=== PATIENT | female | born 1960 | race Caucasian/White ===

== ENCOUNTER 2021-03-10 08:13 | Day surgery (SDC) | payer OTHER ==
[~2021-03-10] VITALS: Ht 152.4 cm; Wt 118.2 kg
[~2021-03-10 08:13] MED LIST: ASPIRIN 81 MG CHEWABLE TABLET PO ONE; DIAZEPAM 5 MG TABLET PO ONE; DiphenhydrAMINE HCL 50 MG CAPSULE PO ONE; SODIUM CHLORIDE 0.9% 1,000 ML IV ONE
[2021-03-10] MEDS ORDERED: SODIUM CHLORIDE 0.9% 1,000 ML ONE (08:22)
[2021-03-10] MEDS ORDERED: DiphenhydrAMINE HCL 50 MG CAPSULE PO ONE (08:30)
[2021-03-10] MEDS ORDERED: DIAZEPAM 5 MG TABLET PO ONE (08:30)
[2021-03-10] MEDS ORDERED: ASPIRIN 81 MG CHEWABLE TABLET PO ONE (08:30)
[2021-03-10] MEDS ORDERED: DiphenhydrAMINE HCL 50 MG CAPSULE ONE (09:21)
[2021-03-10] MEDS ORDERED: DIAZEPAM 5 MG TABLET ONE (09:21)
[2021-03-10] MEDS ORDERED: ASPIRIN 81 MG CHEWABLE TABLET ONE (09:21)
[2021-03-10] MEDS ORDERED: CLOP75TA32 PO (10:22)
[2021-03-10] MEDS ORDERED: LEVO100T13 PO (10:22)
[2021-03-10] MEDS ORDERED: METO-408 PO (10:22)
[2021-03-10] MEDS ORDERED: NITR0.4T50 SL (10:22)
[2021-03-10] MEDS ORDERED: OXYB15TA19 PO (10:22)
[2021-03-10] MEDS ORDERED: TRAZ-252 PO (10:22)
[2021-03-10] MEDS ORDERED: ATOR-2 PO (10:22)
[2021-03-10] MEDS ORDERED: ASPI-1444 PO (10:22)
[2021-03-10] MEDS ORDERED: SODIUM BICARBONATE 50 MEQ/50 ML VIAL ONE (10:25)
[2021-03-10] MEDS ORDERED: IOHEXOL 300 MG/ML 150 ML VIAL ONE (10:25)
[2021-03-10] MEDS ORDERED: LIDOCAINE/PF 1% 30 ML VIAL ONE (10:25)
[2021-03-10] MEDS ORDERED: IOHEXOL 300 MG/ML 50 ML VIAL ONE (10:25)
[2021-03-10] MEDS ORDERED: IOHEXOL 300 MG/ML 100 ML VIAL ONE (10:25)
[2021-03-10] MEDS ORDERED: HEPARIN SODIUM 1000 UNITS/NS 1,000 ML ONE (10:25)
[2021-03-10 11:00] VITALS: BP 150/81
[2021-03-10] MEDS ORDERED: MIDAZOLAM HCL 2 MG/2 ML VIAL ONE (11:12)
[2021-03-10] MEDS ORDERED: FentaNYL CITRATE PF 100 MCG/2 ML VIAL ONE (11:12)
[2021-03-10] MEDS ORDERED: MIDAZOLAM HCL 2 MG/2 ML VIAL IVP ONE ×2 (11:30)
[2021-03-10] MEDS ORDERED: LIDOCAINE 1% 30 ML/SOD BICARB 8.4% 4 ML SQ ONE (11:30)
[2021-03-10] MEDS ORDERED: FentaNYL CITRATE PF 100 MCG/2 ML VIAL IVP ONE ×3 (11:30→11:45)
[2021-03-10] MEDS ORDERED: HEPARIN SODIUM 1000 UNITS/NS 1,000 ML IARTER ONE (11:30)
[2021-03-10] MEDS ORDERED: IOHEXOL 300 MG/ML 150 ML VIAL IARTER ONE (11:30)
[2021-03-10] MEDS ORDERED: SODIUM CHLORIDE 0.9% 250 ML IV ONE (11:45)
[2021-03-10] MEDS ORDERED: HEPARIN SODIUM,PORCINE 5,000 UNITS/ML VIAL IVP ONE (11:45)
[2021-03-10] MEDS ORDERED: CLOPIDOGREL BISULFATE 300 MG TABLET ONE (12:01)
[2021-03-10] MEDS ORDERED: TICAGRELOR 90 MG TABLET ONE (12:03)
[2021-03-10 12:04] VITALS: BP 103/56
[2021-03-10] MEDS ORDERED: TICAGRELOR 90 MG TABLET PO ONE (12:15)
== END 2021-03-10 17:10 | disposition home or self-care (01) ==
LOC: CATHLAB 08:13
PROVIDERS: ATTEND Internal Medicine Interventional Cardiology
DX: I25.119 Atherosclerotic heart disease of native coronary artery with unspecified angina pectoris (principal); F41.9 Anxiety disorder, unspecified; I10 Essential (primary) hypertension; E66.01 Morbid (severe) obesity due to excess calories; E78.5 Hyperlipidemia, unspecified; E66.9 Obesity, unspecified; I25.2 Old myocardial infarction; Z90.49 Acquired absence of other specified parts of digestive tract; Z79.899 Other long term (current) drug therapy; Z98.890 Other specified postprocedural states
CPT/HCPCS: 93005; 93458; 99152; 99153; C1760; C1874; C1887; C9600; J1644; J2250; J3010; J3490 ×2; J7030; Q9967 ×2; 92920; 92928